=== PATIENT | female | born 1980 | race Caucasian/White ===

== ENCOUNTER → 2023-11-25 09:54 | Outpatient (REF) | payer BC, SELFPAY | LOC: WDC 09:54 | PROVIDERS: ATTENDING PHYSICIAN Nurse Practitioner Adult Health | DX: N64.59 Other signs and symptoms in breast (principal) | CPT/HCPCS: 76642; 77062; 77066 ==

== ENCOUNTER → 2024-04-24 06:35 | Day surgery (SDC) | payer BC, SELFPAY | LOC: GI 06:35 | PROVIDERS: ATTENDING PHYSICIAN Internal Medicine Gastroenterology | DX: K64.0 First degree hemorrhoids (principal); K64.4 Residual hemorrhoidal skin tags; D50.9 Iron deficiency anemia, unspecified; N92.0 Excessive and frequent menstruation with regular cycle; Q40.2 Other specified congenital malformations of stomach | CPT/HCPCS: 45378; 43239; 88305 ==

== ENCOUNTER → 2024-12-29 12:20 | Outpatient (REF) | payer BC, SELFPAY | LOC: MRI 3T 12:20 | PROVIDERS: ATTENDING PHYSICIAN Obstetrics & Gynecology Gynecology; FAMILY PHYSICIAN Nurse Practitioner Adult Health | DX: N92.4 Excessive bleeding in the premenopausal period (principal); D21.9 Benign neoplasm of connective and other soft tissue, unspecified | CPT/HCPCS: 72197; A9575 ==

== ENCOUNTER → 2024-12-31 12:17 | Outpatient (REF) | payer BC, SELFPAY | LOC: RADI 12:17 | PROVIDERS: ATTENDING PHYSICIAN Nurse Practitioner Adult Health; FAMILY PHYSICIAN Nurse Practitioner Adult Health | DX: D25.9 Leiomyoma of uterus, unspecified (principal) ==

== ENCOUNTER 2025-02-04 09:22 | Day surgery (SDC) | payer BC, SELFPAY ==
[2025-02-04] VITALS (20 sets, daily range): BP systolic 61–119; BP diastolic 60–88
[2025-02-04 07:45] LABS: HCG, Urine Qualitative Screen Negative
[2025-02-04 07:49] LABS: % Basophils 1.1 % (0-2); % Eosinophils 2.5 % (0-6); % Immature Granulocytes 0.4 % (0-0.5); % Lymphocytes 38.1 % (20.5-51.1); % Monocytes 11.2 % (1.7-9.3); % Neutrophils 46.7 % (42.2-75.2); Absolute Basophils 0.1 10^3/uL (0-0.2); Absolute Eosinophils 0.1 10^3/uL (0-0.7); Absolute Monocytes 0.6 10^3/uL (0.1-0.6); Absolute Neutrophils 2.5 10^3/uL (1.4-6.5); Hematocrit 36.2 % (37.0-47.0); Hemoglobin 11.6 g/dL (12.0-16.0); Mean Corpuscular Hgb 26.6 pg (27.0-31.0); Mean Platelet Volume 9.2 fL (7.4-10.4); Nucleated Red Blood Cells % 0 %; Platelet Count 419 10^3/uL (130-400); Red Blood Cell Count 4.36 10^6/uL (4.20-5.40); Red Cell Dist. Width 14.2 % (11.5-14.5); White Blood Cell Count 5.3 10^3/uL (4.8-10.8)
[2025-02-04 07:58] LABS: Blood Urea Nitrogen 19 mg/dl (7-17); INR 0.96; PT 13.3 Sec (11.4-14.6)
[2025-02-04] MEDS: NSS 1000 IV ×3 (08:25→20:29)
[2025-02-04] MEDS: OXYCONTIN (CONTROLLED RELEASE) 10 MG PO (08:38)
[2025-02-04] MEDS: BENADRYL 25 MG IV (08:38)
[2025-02-04] MEDS: ZOFRAN 8 MG PO (08:38)
[2025-02-04] MEDS: DECADRON 10 MG IV (08:38)
[2025-02-04] MEDS: ATIVAN 1 MG PO (08:38)
[2025-02-04] MEDS: COMPAZINE 10 MG PO (08:39)
[2025-02-04] MEDS: ANCEF 10 IV (08:55)
[2025-02-04] MEDS: NSS IV ×2 (11:53→20:22)
--- NOTE | 2025-02-04 12:47 | PTCARENOTE ---
Pt came up from [facility] at 11:30 on bed. Pt has IV fluids running at 100ml/hr. Pt has no new complaints and resting comfortably with at bedside. Plan of care ongoing.
[2025-02-04] MEDS: DILAUDID 0.5 MG IV ×2 (14:14→20:28)
[2025-02-04] MEDS: TORADOL 15 MG IV ×2 (16:38→21:26)
--- NOTE | 2025-02-04 17:23 | W.PN.UPDATE ---
Update Note
Progress Note Update
Pt doing well post uterine artery embolization. Up in bed, NAD. Expected crampy pain, controlled by rx. No groin pain. R groin w dry dressing, no hematoma. Garcia out, has been OOB, taking PO. Discussed expected post procedure course. Expect d/c AM.
--- NOTE | 2025-02-04 17:37 | PTCARENOTE ---
pt came to floor with ralph, per order ralph taken out at 1630. Pt tolerated well, after removal pt walked throughout floor. awaiting pt to urinate. Plan of care ongoing
[2025-02-05] MEDS: DILAUDID 0.5 MG IV (03:00)
[2025-02-05 03:42] VITALS: BP 133/80
[2025-02-05] MEDS: TORADOL 15 MG IV ×2 (04:45→09:01)
[2025-02-05] MEDS: NSS 1000 IV (04:46)
[2025-02-05] MEDS: NSS IV (05:40)
--- NOTE | 2025-02-05 07:34 | W.PN.UPDATE ---
Update Note
Progress Note Update
Nayeli is a pleasant 44-year-old female with past medical history significant for uterine fibroids. She's been experiencing symptoms for the past several years with something worsening over the past few months. She reports heavy menses for
the first 3 days of her cycle which lasts up to 10 days. She reports passing large clots which are very uncomfortable. She had UFE yesterday. She has some cramping but is is controlled with pain medication. She is voiding spontaneously and
tolerating POs.
She denies any fever, chills, dizziness, lightheadedness, shortness of breath, palpitations, nausea, vomiting, urinary urgency frequency or constipation.
PMH: Frequent urinary tract infections, shingles 2009.
PSH: Laparoscopic appendectomy 2006, x2, hemorrhoidectomy, tonsillectomy.
Social History: She is a nonsmoker. She is and lives with her .
The patient's current medications were documented and reviewed at the time of this visit including dosage, frequency and route of administration.
Current Medications: Colace 100 mg 2 capsules by mouth as needed, vitamin C 500 mg by mouth 5 days during her menses.
Allergies: NKDA.
Physical examination: This is a well-nourished well-developed 44-year-old female who is awake, alert and oriented in no acute distress. Her color is good. Her skin is warm and dry. Her conjunctiva are pink. Her neck is supple with full range of
motion. Her heart is regular. Her lungs are clear throughout. Her abdomen is soft round and nontender. Right groin dressing CDI. No hematoma. Palpable inguinal and pedal pulses
A/P:
This is a 44 yo female with uterine fibroids who underwent UFE yesterday
She is voiding spontaneously
She is tolerating POs
She is having mild cramping as expected
Plan to discharge today
I spent over 30 minutes in counseling and coordination of care with the patient, reviewing previous medical records, laboratory studies, relevant imaging and documenting as well as reviewing the procedure and expected length of convalescence with
the patient
[2025-02-05 07:58] VITALS: BP 120/80
--- NOTE | 2025-02-05 08:55 | CM ---
Alert awake oriented patient who lives with her Flako in a 2 story home with 1 steps to enter and 13 steps to bed/bathroom. She is independent in activates of daily living.She does drive .She said she was ready for discahrge and her
Flako will drive her home.
No VN in past . No SNF hx
Pharmacy Sana Miranda
PCP [facility]
PLAN Home with no needs
== END 2025-02-05 09:17 | disposition home or self-care (01) ==
LOC: RADI 09:22
PROVIDERS: ATTENDING PHYSICIAN Radiology Vascular & Interventional Radiology; FAMILY PHYSICIAN Nurse Practitioner Adult Health; REFERRING PHYSICIAN Physician Assistant
DX: D25.9 Leiomyoma of uterus, unspecified (principal); N92.1 Excessive and frequent menstruation with irregular cycle
CPT/HCPCS: 37243; 36246; 36415; 75736; 76937; 81025; 82565; 84520; 85025; 85610; 99152; 99153; C1769

== ENCOUNTER → 2025-03-01 16:41 | Outpatient (REF) | payer BC, SELFPAY | LOC: WDC 16:41 | PROVIDERS: ATTENDING PHYSICIAN Nurse Practitioner Adult Health; FAMILY PHYSICIAN Nurse Practitioner Adult Health | DX: Z12.31 Encounter for screening mammogram for malignant neoplasm of breast (principal) | CPT/HCPCS: 77063; 77067 ==

== ENCOUNTER → 2025-07-26 15:08 | Outpatient (REF) | payer BC, SELFPAY | LOC: MRI 3T 15:08 | PROVIDERS: ATTENDING PHYSICIAN Physician Assistant; FAMILY PHYSICIAN Nurse Practitioner Adult Health | DX: H93.A2 Pulsatile tinnitus, left ear (principal) | CPT/HCPCS: 70543; 70553; A9575 ==